=== PATIENT | female | born 1995 | race Caucasian/White ===

== ENCOUNTER 2017-12-15 15:25 | Emergency (ER) | END 2017-12-15 22:25 | disposition home or self-care (01) ==

== ENCOUNTER 2018-09-10 18:33 | Outpatient (CLI) | END 2018-09-10 21:00 | disposition home or self-care (01) ==

== ENCOUNTER 2018-09-22 03:15 | Inpatient (IN) | payer OTHER ==
[~2018-09-22] VITALS: Ht 157.5 cm; Wt 66.8 kg
[~2018-09-22 03:15] MED LIST: PNV11TAB PO
[2018-09-22] MEDS ORDERED: LACTATED RINGER'S 1,000 ML IV PRN (04:17)
[2018-09-22] MEDS ORDERED: FERR134T PO (04:17)
[2018-09-22 04:21] VITALS: BP 120/85; PULSE 80; RESP 18
[2018-09-22] MEDS ORDERED: BUTORPHANOL 2 MG INJ IV PRN (04:30)
[2018-09-22] MEDS ORDERED: MISOPROSTOL 200 MCG TAB PR PRN ×2 (04:30→12:00)
[2018-09-22] MEDS ORDERED: OXYTOCIN 30 UNITS/LR 500 ML IV PRN ×2 (04:30→12:00)
[2018-09-22] MEDS ORDERED: LIDOCAINE 1% (MPF) 30 ML INJ INJ PRN (04:30)
[2018-09-22] MEDS ORDERED: IBUPROFEN 600 MG TAB PO PRN (04:30)
[2018-09-22] MEDS ORDERED: METHYLERGONOVINE 0.2 MG INJ IM PRN ×2 (04:30→12:00)
[2018-09-22] MEDS ORDERED: MINERAL OIL LIGHT 10 ML VIAL TOP ONE (04:30)
[2018-09-22] MEDS ORDERED: OXYTOCIN 30 UNITS/LR 500 ML IV SCH ×4 (04:30→11:57)
[2018-09-22] MEDS ORDERED: CARBOPROST 250 MCG INJ IM PRN ×2 (04:30→12:00)
--- NOTE | 2018-09-22 04:58 | TRIAGE ---
OB Triage Datetime Report Generated by CPN: 09/22/2018 04:58 Datetime: 09/22/2018 04:47 Heart Rate FHR Baseline Rate: 130 Monitor Mode: External US FHR Baseline Changes: No Baseline Change Variability: Moderate 6-25 bpm Datetime: 09/22/2018 04:30 Stage of : OB Triage Labor Evaluation Frequency: 2-6 Monitor Mode: External Duration (sec)2399: 40-60 Quality: Moderate Pattern: Normal: <= 5 Contractions in 10 Minutes Resting Tone [place]: Relaxed Heart Rate FHR Baseline Rate: 130 Monitor Mode: External US FHR Baseline Changes: No Baseline Change Variability: Moderate 6-25 bpm Accelerations: 15X15 Decelerations: None Category: Category I Datetime: 09/22/2018 04:00 Vaginal Exam Dilatation (cms): 3.0 Datetime: 09/22/2018 03:49 Stage of : OB Triage Labor Evaluation Frequency: 3-5 Monitor Mode: External Quality: Moderate Pattern: Normal: <= 5 Contractions in 10 Minutes Resting Tone [place]: Relaxed Heart Rate FHR Baseline Rate: 130 Monitor Mode: External US FHR Baseline Changes: No Baseline Change Variability: Moderate 6-25 bpm Accelerations: 15X15 Decelerations: None Category: Category I Vaginal Exam Dilatation (cms): 3.0 Effacement (%): 80 Station: -2 Exam By: Grayson MEDEL Membrane Status: Intact Vaginal Bleeding: Normal Show Cervix, Consistency: Soft Cervix, Position: Posterior Presentation 'A': Cephalic Datetime: 09/22/2018 03:33 Time of Arrival: 09/22/2018 03:15 EGA: 39.5 Arrived By: Ambulatory Arrived From: Home Chief Complaint: c/o ucs Movement: Present Contractions: Regular Time Contractions Began: 09/21/2018 20:00 Contractions: Q5 Rupture of Membranes: Denies Vaginal Bleeding: None Vaginal Discharge: Denies Recent Sexual Intercouse: Denies Abdominal Trauma: Not Applicable Patient Complaints: Contractions Time Provider Notified: 09/22/2018 04:30 Provider Notified: Dr Goff Initial Plan: EFM,SVE Datetime: 09/22/2018 03:26 Stage of : OB Triage Maternal Assessment Level of Consciousness: Fully Conscious Headache: Denies Blurred Vision: No Respiratory Effort: Unlabored Nausea/Vomiting: Denies RUQ Epigastric Pain: Denies Facial Edema: None Monitor Mode: External Resting Tone [place]: Relaxed Heart Rate FHR Baseline Rate: 135 Monitor Mode: External US Pain Assessment Pain Scale: 8 Pain Presence: Intermittent Pain Type: Contraction Pain Location: Abdomen Datetime: 09/10/2018 18:36 EGA: 38.0 Datetime: 09/10/2018 18:11 Fall Risk Assessment Fall Score: 0 Fall Risk Score Definition: No Risk: No action required
[2018-09-22] MEDS: LACTATED RINGER'S 1,000 ML IV SCH ×3 (05:19→20:17)
--- NOTE | 2018-09-22 11:57 | LDN ---
Date/Time of Note Date/Time of Note DATE: 09/22/18 TIME: 11:56 Delivery Summary Placenta Delivered: Spontaneously Meconium: Thick Episiotomy: No Perineal laceration: 2 Anesthesia type: Local Estimated blood loss: 200 Sponge & Needle done & correct: Yes All needle counts correct: Yes Any foreign bodies felt in the: No Delivery Information Apgars 1 Minute: 9 5 Minute: 9 Suctioning Nose & mouth suctioned at ava: Yes Delee suction performed: Yes Umbilical Cord Umbilical cord with: 3 Vessels Cord presentations: no nuchal cord Cord Blood was obtained: Yes Mother & Baby Disposition Disposition Mom & Baby to Maternity; Good: Yes Baby to NICU: No JOSE VELAZQUEZ M.D. Sep 22, 2018 11:57
[2018-09-22] MEDS ORDERED: OXYCODONE/ASPIRIN (4.88/325) TAB PO PRN (12:00)
[2018-09-22] MEDS ORDERED: LANOLIN HPA 1 PKT TOP PRN (12:00)
[2018-09-22] MEDS ORDERED: SENNA/DOCUSATE NA (8.6MG/50MG) TAB PO PRN (12:00)
[2018-09-22] MEDS ORDERED: WITCH HAZEL/GLYCERIN PAD PR PRN (12:00)
[2018-09-22] MEDS ORDERED: ZOLPIDEM 5 MG TAB PO PRN (12:00)
[2018-09-22] MEDS ORDERED: BENZOCAINE 20% 56 ML SPRAY TOP PRN (12:00)
[2018-09-22] MEDS ORDERED: NACL 0.9% 3 ML SYG IV SCH (12:00)
--- NOTE | 2018-09-22 12:01 | HP ---
Date/Time of Note Date/Time of Note DATE: 09/22/18 TIME: 12:00 OB - History Hx of Present Free Text/Dictation @39+wks GA in labor : 1 Para: 0 Care: Good Care Ultrasounds: Normal mid trimester US Obstetrical Complications: None Medical Complications: None Past Family/Social History * Past Medical, Surgical, Family and Obstetric Histories reviewed from chart. OB Admission Exam Vital Signs Vital Signs Vital Signs Date Temp Pulse Resp B/P (MAP) Pulse Ox O2 O2 Flow FiO2 Time Delivery Rate 09/22/18 97.8 80 18 120/85 Room Air 04:21 (97) Physical Exam Abdomen: WNL Heart Rate: 140's Accelerations: Accelerations Present Decelerations: No Decelerations Varibility: Moderate Contractions on Admission: < 5 Minutes Apart Last 72 hours Lab Results CBC & BMP 09/22/18 04:56 Liver Function Test 09/22/18 04:56 Alanine Aminotransferase (ALT/SGPT) 17 Albumin 3.6 Alkaline Phosphatase 171 H Aspartate Amino Transf (AST/SGOT) 19 Direct Bilirubin 0.00 Total Protein 7.1 OB Assessment/Plan Reason for admission: observation Plan: Expectant Management JOSE VELAZQUEZ M.D. Sep 22, 2018 12:01
--- NOTE | 2018-09-22 12:12 | HP ---
Date/Time of Note Date/Time of Note DATE: 09/22/18 TIME: 12:11 OB - History Hx of Present Free Text/Dictation G1 with term IUP who presented to L&D in active labor. I was asked to attend . when i arrived she was 8-9 cm. Care: Good Care Ultrasounds: Normal mid trimester US Obstetrical Complications: None Medical Complications: None Past Family/Social History * Past Medical, Surgical, Family and Obstetric Histories reviewed from chart. OB Admission Exam Vital Signs Vital Signs Vital Signs Date Temp Pulse Resp B/P (MAP) Pulse Ox O2 O2 Flow FiO2 Time Delivery Rate 09/22/18 97.8 80 18 120/85 Room Air 04:21 (97) Physical Exam HEENT: WNL Heart: Rhythm Normal Lungs: Clear, Equal Abdomen: WNL Extremities: Normal Reflexes: Normal Last 72 hours Lab Results CBC & BMP 09/22/18 04:56 Liver Function Test 09/22/18 04:56 Alanine Aminotransferase (ALT/SGPT) 17 Albumin 3.6 Alkaline Phosphatase 171 H Aspartate Amino Transf (AST/SGOT) 19 Direct Bilirubin 0.00 Total Protein 7.1 OB Assessment/Plan Reason for admission: active labor Plan: Expectant Management ALAN GALVAN MD Sep 22, 2018 12:12
[2018-09-22] MEDS: IBUPROFEN 600 MG TAB PO SCH ×3 (13:08→23:36)
[2018-09-22 13:53] VITALS: BP 121/60; PULSE 70; RESP 18
[2018-09-22 16:00] VITALS: BP 114/55; PULSE 80; RESP 18
[2018-09-22 20:05] VITALS: BP 110/70; PULSE 85; RESP 18
[2018-09-22] MEDS: SENNA/DOCUSATE NA (8.6MG/50MG) TAB PO SCH (21:08)
[2018-09-22 23:47] VITALS: BP 112/68; PULSE 82; RESP 19
[2018-09-23 03:50] VITALS: BP 103/61; PULSE 85; RESP 18
[2018-09-23] MEDS: IBUPROFEN 600 MG TAB PO SCH ×4 (05:38→23:31)
[2018-09-23 08:30] VITALS: BP 104/71; PULSE 77; RESP 18
[2018-09-23] MEDS: SENNA/DOCUSATE NA (8.6MG/50MG) TAB PO SCH ×2 (09:54→21:46)
--- NOTE | 2018-09-23 14:01 | DS ---
Date/Time of Note Date/Time of Note DATE: 09/23/18 TIME: 14:00 Obstetrical Discharge Record Final Diagnosis Final Diagnosis: Term delivered Vaginal Delivery Obstetrical Delivery: Spontaneous Complications Augmentation: Yes Rupture of Membranes: No Condition on Discharge Physical Assessment Voiding: Yes Bowel Movement: Yes Breast: Soft, non-tender, Filling Fundus: Firm Abdomen and Incision: soft, not tender Calf Tenderness: No Patient Condition: Good ALAN GALVAN MD Sep 23, 2018 14:01
[2018-09-23 16:00] VITALS: BP 121/80; RESP 18
[2018-09-23 20:20] VITALS: BP 110/73; PULSE 85; RESP 18
[2018-09-24 04:00] VITALS: BP 108/59; PULSE 78; RESP 17
[2018-09-24] MEDS: IBUPROFEN 600 MG TAB PO SCH ×2 (05:27→13:04)
[2018-09-24 08:40] VITALS: BP 123/67; PULSE 82; RESP 18
[2018-09-24] MEDS ORDERED: DIPHTH/TET/ACEL PERTUSS (ADULT) 0.5 ML VIAL IM* ONE (09:00)
[2018-09-24] MEDS: SENNA/DOCUSATE NA (8.6MG/50MG) TAB PO SCH (13:03)
== END 2018-09-24 15:58 | disposition home or self-care (01) | DRG 807 ==
LOC: OBT 03:15 → L-D 03:15 → OBT 04:30 → PP1 13:22
PROVIDERS: ADMIT Specialist; ATTEND Specialist
PROC: 10E0XZZ Delivery of Products of Conception, External Approach (ICD-10-PCS; principal; 2018-09-22)
DX: O80 Encounter for full-term uncomplicated delivery (principal); Z37.0 Single live birth; Z3A.39 39 weeks gestation of pregnancy
CPT/HCPCS: 80053; 80307; 81001; 84560; 85025; 85610; 85730; 86592; 86850; 86900; 86901; 87340; 99464; G0463; J2590; J7120